=== PATIENT | female | born 1960 | race Caucasian/White ===

== ENCOUNTER 2023-11-30 10:35 | Day surgery (SDC) | payer MEDICAID ==
[2023-11-30] VITALS (9 sets, daily range): BP systolic 130–166; BP diastolic 71–91; PULSE 60–83; RESP 12–18; TEMP 98.7; O2SAT 91–98
[~2023-11-30] VITALS: Ht 167.6 cm; Wt 81.4 kg
[2023-11-30] MEDS: DOCUMENT DATE & TIME OF BETA-BLOCKER PO ONE (06:00)
[~2023-11-30 10:35] MED LIST: CALC-1260 PO; CHOL200059 PO; CLON1TAB12 PO; DOCU100C40 PO; ESCI-8 PO; ESOM20CA38 PO; FEXO-353 PO; FLUT16SP2 BOTHNARES; GABA800T11 PO; HYDR-3686 PO; HYDR-3972 PO; LEVO175T7 PO; LIDO28.35 TOP; LISI10TA27 PO; METH-798 PO; METO25TA6 PO; MONT-48 PO; NYST15PO4 TOP; OXYC20TA55 PO; SUCR1ORA15 PO; SUMA100T16 PO; TRAZ150T78 PO; VANCOMYCIN 1,500MG in NS 300ml IVPB IV ONE; [UNRECOGNIZED DRUG - OTHER] PO; cefazolin 2gm/D5W 100mL 100 ML IV ONE; vancomycin/NS 1 GM ADD-VANTAGE 250 ML X 1 DOSE IV ONE
[2023-11-30] MEDS ORDERED: ondansetron/PF 4mg/2ml inj IV PRN (10:50)
[2023-11-30] MEDS ORDERED: labetalol 20mg/4ml (5mg/ml) syringe IV PRN (10:50)
[2023-11-30] MEDS ORDERED: proCHLORperazine 10 MG/2 ml inj IV PRN (10:50)
[2023-11-30] MEDS ORDERED: meperidine/PF 25mg/ml syringe IV PRN ×3 (10:50)
[2023-11-30] MEDS ORDERED: enalaprilat dihydrate 2.5mg/2ml vial IV PRN (10:50)
[2023-11-30] MEDS ORDERED: ringers solution, lacted 1,000 ML IV SCH (10:50)
[2023-11-30 11:12] LABS: BASOPHILS % (AUTO) 0.4 % (0-1); LYMPHOCYTES # (AUTO) 1.8 X10'3 (1.1-4.8); LYMPHOCYTES % (AUTO) 37.1 % (21-51); MEAN CORPUSCULAR HEMOGLOBIN 31.3 PG (27.0-31.0); MEAN CORPUSCULAR HGB CONC 33.2 g/dL (33.0-36.5); MEAN CORPUSCULAR VOLUME 94.3 FL (78-98); MEAN PLATELET VOLUME 6.8 FL (7.4-10.4); MONOCYTES # (AUTO) 0.3 X10'3 (0-0.9); MONOCYTES % (AUTO) 5.7 % (2-12); NEUTROPHILS # (AUTO) 2.7 X10'3 (1.8-7.7); NEUTROPHILS % (AUTO) 55.8 % (42-75); PRE OP HEMATOCRIT 41.8 % (35.0-45.0); PRE OP HEMOGLOBIN 13.9 g/dL (12.0-16.0); PRE OP PLATELET COUNT 244 X10'3 (140-440); PRE OP WHITE BLOOD COUNT 4.9 10'3 (4.8-10.8); RED BLOOD COUNT 4.44 X10'6 (4.20-5.60); RED CELL DISTRIBUTION WIDTH 14.2 % (11.5-14.5)
[2023-11-30 11:33] LABS: INR 1.1 INR; PRE OP PARTIAL THROMB. TIME 26 SECONDS (22-32); PROTHROMBIN TIME 11.4 SECONDS (9.0-12.0)
[2023-11-30 11:34] LABS: ALBUMIN 3.5 G/DL (3.4-5.0); ALBUMIN/GLOBULIN RATIO 1.3 (1.1-1.5); ALKALINE PHOSPHATASE 147 IU/L (46-116); BLOOD UREA NITROGEN 14 MG/DL (7-18); BUN/CREATININE RATIO 22.6 (10.0-20.0); CALCIUM 8.6 MG/DL (8.5-10.1); CHLORIDE 109 MMOL/L (99-107); CREATININE 0.62 MG/DL (0.40-0.90); PRE OP ALT 75 U/L (30-65); PRE OP ANION GAP 4 (8-16); PRE OP AST 66 U/L (10-37); PRE OP BILIRUB, TOTAL 0.6 MG/DL (0.0-1.0); PRE OP GLUCOSE 81 MG/DL (70-104); PRE OP POTASSIUM 3.6 MMOL/L (3.4-5.1); PRE OP SODIUM 145 MMOL/L (135-145); TOTAL CARBON DIOXIDE 31.8 MMOL/L (24-32); TOTAL PROTEIN 6.3 G/DL (6.4-8.2); eCRCL 88 ML/MIN; eGFR > 90 ML/MIN
[2023-11-30] MEDS ORDERED: sevoflurane 250ml liquid IH ONE (11:38)
[2023-11-30] MEDS: famotidine 20mg tablet PO ONE (11:39)
[2023-11-30] MEDS: ringers solution, lacted 1,000 ML IV SCH (11:39)
[2023-11-30] MEDS ORDERED: propofol inj 20 ML IV ONE ×2 (11:50→11:53)
[2023-11-30] MEDS ORDERED: midazolam 1 mg/ML 2ml injection ONE (11:50)
[2023-11-30] MEDS ORDERED: ROPIVAcaine 0.5% (5mg/ml) 30ml vial ONE (11:50)
[2023-11-30] MEDS ORDERED: fentaNYL/PF 50MCG/1 ML 2ML syringe ONE (11:50)
[2023-11-30] MEDS ORDERED: LIDOcaine 1%/PF 5ML 10 MG/ML VIAL ONE (11:53)
[2023-11-30] MEDS ORDERED: ondansetron/PF 4mg/2ml inj ONE (14:25)
== END 2023-11-30 15:49 | disposition home or self-care (01) ==
LOC: PAS 10:35
PROVIDERS: ATTEND Specialist
DX: M75.121 Complete rotator cuff tear or rupture of right shoulder, not specified as traumatic (principal); G89.18 Other acute postprocedural pain; I10 Essential (primary) hypertension; E89.0 Postprocedural hypothyroidism; J44.9 Chronic obstructive pulmonary disease, unspecified; E66.9 Obesity, unspecified; G47.33 Obstructive sleep apnea (adult) (pediatric); I20.9 Angina pectoris, unspecified; F41.9 Anxiety disorder, unspecified; F32.A Depression, unspecified; Z87.891 Personal history of nicotine dependence; Z79.890 Hormone replacement therapy; Z79.899 Other long term (current) drug therapy; Z96.642 Presence of left artificial hip joint; Z96.653 Presence of artificial knee joint, bilateral; Z98.41 Cataract extraction status, right eye; Z98.42 Cataract extraction status, left eye; Z98.51 Tubal ligation status; Z98.84 Bariatric surgery status; Z98.890 Other specified postprocedural states; Z68.28 Body mass index [BMI] 28.0-28.9, adult; Z88.0 Allergy status to penicillin; Z88.1 Allergy status to other antibiotic agents; Z88.5 Allergy status to narcotic agent; Z88.8 Allergy status to other drugs, medicaments and biological substances; Z82.49 Family history of ischemic heart disease and other diseases of the circulatory system
CPT/HCPCS: 29826; 29827; 29828; 36415; 64415; 71045; 80053; 82948; 85025; 85610; 85730; 86885; 86900; 86901; 93005; C1713; J1100; J2250; J2405; J2704; J2795; J3010; J3370; J3490; J7040; J7120; J7121; Z7506; Z7508; Z7512; A4565; A4615; A4618; A6253; A6449; A7000